=== PATIENT | male | born 1965 | race Caucasian/White ===

== ENCOUNTER 2018-04-18 08:58 | Emergency (ER) | payer SELFPAY ==
--- NOTE | 2018-04-18 09:02 | ER Report ---
History and Physical Time Seen By MD: 09:02 REINA/EUSEBIO CHIEF COMPLAINT: Suicidal ideation HISTORY OF PRESENT ILLNESS: Patient is a 52-year-old male who was traveling from [facility] to [place] for a job apparently he stopped and [place] and during his stay ended up getting a DUI becoming depressed. Patient has prior psychiatric history which includes bipolar disorder but not taking his medications since July. Also has had prior suicidal ideation and attempts. Patient called to the behavioral medicine floor and said that he felt suicidal. Behavioral medicine called the [place] [employer] and he was brought to the emergency department for evaluation. Patient states that his plan was to wait until 9:30 this evening when it was dark and he was going to [place] in front of a moving vehicle. Patient currently states he is voluntary. [place] [employer] state that if the patient changes his mind they would emergency detain him. REVIEW OF SYSTEMS: Constitutional: No fever, no chills. Eyes: No discharge. ENT: No sore throat. Cardiovascular: No chest pain, no palpitations. Respiratory: No cough, no shortness of breath. Gastrointestinal: No abdominal pain, no vomiting. Genitourinary: No hematuria. Musculoskeletal: No back pain. Skin: No rashes. Neurological: no hedache Psych: suicidal Allergies: Coded Allergies: No Known Drug Allergies (Unverified , 04/18/18) Home Meds No Active Prescriptions or Reported Meds Constitutional Vital Sign - Last 24 Hours 04/18/18 04/18/18 04/18/18 04/18/18 09:00 09:03 09:15 09:28 Temp 98.2 Pulse 58 98 Resp 20 B/P (MAP) 138/112 135/116 (122) 146/90 (108) Pulse Ox 95 94 O2 Delivery Room Air 04/18/18 04/18/18 09:30 09:45 B/P (MAP) 128/112 (117) 147/106 (120) Physical Exam General Appearance: The patient is alert, has no immediate need for airway protection and no signs of toxicity. Eyes: Pupils equal and round no pallor or injection. ENT, Mouth: Mucous membranes are moist. Respiratory: There are no retractions, lungs are clear to auscultation. Cardiovascular: Regular rate and rhythm. [ ] Gastrointestinal: Abdomen is soft and non tender, no masses, bowel sounds normal. Neurological: Increased psychomotor agitation, awake and alert GCS is 15 Skin: Warm and dry, no rashes. Musculoskeletal: Neck is supple non tender. Extremities are nontender, nonswollen and have full range of motion. Psychiatric: Suicidal ideation with plan to walk in front of a moving vehicle. Thought process is logical and goal-directed patient does not seem to be responding to any internal stimuli. [DIFFERENTIAL DIAGNOSIS: After history and physical exam differential diagnosis was considered for] [ ] Medical Decision Making Data Points Result Diagram: 04/18/18 1027 04/18/18 1027 Laboratory Hematology Test 04/18/18 09:53 04/18/18 10:27 Urine Color Rhonda Urine Clarity Slightly-cloudy Urine pH 5.0 pH (4.8-9.5) Urine Specific Doss 1.025 Urine Protein 100 mg/dL (NEGATIVE) Urine Glucose (UA) Negative mg/dL (NEGATIVE) Urine Ketones Trace mg/dL (NEGATIVE) Urine Blood Negative (NEGATIVE) Urine Nitrite Negative (NEGATIVE) Urine Bilirubin Negative (NEGATIVE) Urine Urobilinogen 4.0 mg/dL (0.2-1.9) Urine Leukocyte Esterase Negative (NEGATIVE) Urine RBC 2 /HPF (0-2/HPF) Urine WBC 2 /HPF (0-5/HPF) Urine Squamous Epithelial Cells None /LPF (</=FEW) Urine Bacteria Few /HPF (NONE-FEW) Urine Mucus Few /HPF (NONE-FEW) Urine Opiates Screen Negative Urine Barbiturates Screen Negative Ur Tricyclic Antidepressants Screen Negative Urine Phencyclidine Screen Negative Urine Amphetamines Screen Positive Urine Benzodiazepines Screen Negative Urine Cocaine Screen Negative Urine Cannabinoids Screen Positive Red Blood Count 5.05 M/uL (4.00-5.60) Mean Corpuscular Volume 101.6 fL (80.0-96.0) Mean Corpuscular Hemoglobin 34.8 pg (26.0-33.0) Mean Corpuscular Hemoglobin Concent 34.3 g/dL (32.0-36.0) Red Cell Distribution Width 13.2 % (11.5-14.5) Mean Platelet Volume 8.9 fL (7.2-11.1) Neutrophils (%) (Auto) 72.1 % (39.4-72.5) Lymphocytes (%) (Auto) 21.9 % (17.6-49.6) Monocytes (%) (Auto) 4.8 % (4.1-12.4) Eosinophils (%) (Auto) 0.6 % (0.4-6.7) Basophils (%) (Auto) 0.6 % (0.3-1.4) Nucleated RBC Relative Count (auto) 0.1 /100WBC Neutrophils # (Auto) 6.1 K/uL (2.0-7.4) Lymphocytes # (Auto) 1.8 K/uL (1.3-3.6) Monocytes # (Auto) 0.4 K/uL (0.3-1.0) Eosinophils # (Auto) 0.0 K/uL (0.0-0.5) Basophils # (Auto) 0.0 K/uL (0.0-0.1) Nucleated RBC Absolute Count (auto) 0.01 K/uL Sodium Level 141 mmol/L (137-145) Potassium Level 3.5 mmol/L (3.5-5.0) Chloride Level 104 mmol/L (98-107) Carbon Dioxide Level 23 mmol/L (22-30) Blood Urea Nitrogen 9 mg/dl (9-21) Creatinine 0.90 mg/dl (0.66-1.25) Glomerular Filtration Rate Calc > 60.0 Random Glucose 92 mg/dl (75-110) Calcium Level 9.5 mg/dl (8.4-10.2) Magnesium Level 1.6 mg/dl (1.7-2.2) Total Bilirubin 1.1 mg/dl (0.2-1.3) Aspartate Amino Transf (AST/SGOT) 43 U/L (0-35) Alanine Aminotransferase (ALT/SGPT) 31 U/L (0-56) Alkaline Phosphatase 67 U/L (0-126) Total Protein 7.4 g/dl (6.3-8.2) Albumin 4.3 g/dl (3.5-5.0) Salicylates Level < 10 mg/L Salicylate Last Dose Date unk Acetaminophen Level < 10 ug/ml Serum Alcohol 15 mg/dl Chemistry Test 04/18/18 09:53 04/18/18 10:27 Urine Color Rhonda Urine Clarity Slightly-cloudy Urine pH 5.0 pH (4.8-9.5) Urine Specific Doss 1.025 Urine Protein 100 mg/dL (NEGATIVE) Urine Glucose (UA) Negative mg/dL (NEGATIVE) Urine Ketones Trace mg/dL (NEGATIVE) Urine Blood Negative (NEGATIVE) Urine Nitrite Negative (NEGATIVE) Urine Bilirubin Negative (NEGATIVE) Urine Urobilinogen 4.0 mg/dL (0.2-1.9) Urine Leukocyte Esterase Negative (NEGATIVE) Urine RBC 2 /HPF (0-2/HPF) Urine WBC 2 /HPF (0-5/HPF) Urine Squamous Epithelial Cells None /LPF (</=FEW) Urine Bacteria Few /HPF (NONE-FEW) Urine Mucus Few /HPF (NONE-FEW) Urine Opiates Screen Negative Urine Barbiturates Screen Negative Ur Tricyclic Antidepressants Screen Negative Urine Phencyclidine Screen Negative Urine Amphetamines Screen Positive Urine Benzodiazepines Screen Negative Urine Cocaine Screen Negative Urine Cannabinoids Screen Positive White Blood Count 8.4 k/uL (4.5-11.0) Red Blood Count 5.05 M/uL (4.00-5.60) Hemoglobin 17.6 g/dL (14.0-18.0) Hematocrit 51.3 % (42.0-52.0) Mean Corpuscular Volume 101.6 fL (80.0-96.0) Mean Corpuscular Hemoglobin 34.8 pg (26.0-33.0) Mean Corpuscular Hemoglobin Concent 34.3 g/dL (32.0-36.0) Red Cell Distribution Width 13.2 % (11.5-14.5) Platelet Count 154 K/uL (150-450) Mean Platelet Volume 8.9 fL (7.2-11.1) Neutrophils (%) (Auto) 72.1 % (39.4-72.5) Lymphocytes (%) (Auto) 21.9 % (17.6-49.6) Monocytes (%) (Auto) 4.8 % (4.1-12.4) Eosinophils (%) (Auto) 0.6 % (0.4-6.7) Basophils (%) (Auto) 0.6 % (0.3-1.4) Nucleated RBC Relative Count (auto) 0.1 /100WBC Neutrophils # (Auto) 6.1 K/uL (2.0-7.4) Lymphocytes # (Auto) 1.8 K/uL (1.3-3.6) Monocytes # (Auto) 0.4 K/uL (0.3-1.0) Eosinophils # (Auto) 0.0 K/uL (0.0-0.5) Basophils # (Auto) 0.0 K/uL (0.0-0.1) Nucleated RBC Absolute Count (auto) 0.01 K/uL Glomerular Filtration Rate Calc > 60.0 Calcium Level 9.5 mg/dl (8.4-10.2) Magnesium Level 1.6 mg/dl (1.7-2.2) Total Bilirubin 1.1 mg/dl (0.2-1.3) Aspartate Amino Transf (AST/SGOT) 43 U/L (0-35) Alanine Aminotransferase (ALT/SGPT) 31 U/L (0-56) Alkaline Phosphatase 67 U/L (0-126) Total Protein 7.4 g/dl (6.3-8.2) Albumin 4.3 g/dl (3.5-5.0) Salicylates Level < 10 mg/L Salicylate Last Dose Date unk Acetaminophen Level < 10 ug/ml Serum Alcohol 15 mg/dl Toxicology Test 04/18/18 09:53 04/18/18 10:27 Urine Opiates Screen Negative Urine Barbiturates Screen Negative Ur Tricyclic Antidepressants Screen Negative Urine Phencyclidine Screen Negative Urine Amphetamines Screen Positive Urine Benzodiazepines Screen Negative Urine Cocaine Screen Negative Urine Cannabinoids Screen Positive Salicylates Level < 10 mg/L Salicylate Last Dose Date unk Acetaminophen Level < 10 ug/ml Serum Alcohol 15 mg/dl Urinalysis Test 04/18/18 09:53 Urine Color Rhonda Urine Clarity Slightly-cloudy Urine pH 5.0 pH (4.8-9.5) Urine Specific Doss 1.025 Urine Protein 100 mg/dL (NEGATIVE) Urine Glucose (UA) Negative mg/dL (NEGATIVE) Urine Ketones Trace mg/dL (NEGATIVE) Urine Blood Negative (NEGATIVE) Urine Nitrite Negative (NEGATIVE) Urine Bilirubin Negative (NEGATIVE) Urine Urobilinogen 4.0 mg/dL (0.2-1.9) Urine Leukocyte Esterase Negative (NEGATIVE) Urine RBC 2 /HPF (0-2/HPF) Urine WBC 2 /HPF (0-5/HPF) Urine Squamous Epithelial Cells None /LPF (</=FEW) Urine Bacteria Few /HPF (NONE-FEW) Urine Mucus Few /HPF (NONE-FEW) ED Course/Re-evaluation ED Course 04/18/2018 9:17:47 am patient here currently not a police hold. Patient suicidal with plan. We will perform medical screening exam and if cleared we'll discuss the case with behavioral medicine Decision to Disposition Date: Apr 18, 2018 Decision to Disposition Time: 11:08 Depart Departure Latest Vital Signs Vital Signs Date Time Temp Pulse Resp B/P (MAP) Pulse Ox O2 Delivery O2 Flow Rate FiO2 04/18/18 09:45 147/106 (120) 04/18/18 09:28 98 94 04/18/18 09:00 98.2 20 Room Air Impression: Primary Impression: Depression with suicidal ideation Condition: Improved Disposition: XFER TO [facility] UNIT (to Dr Hidalgo) New Scripts No Active Prescriptions or Reported Meds JAVON HASTINGS MD Apr 18, 2018 09:02
[2018-04-18] MEDS ORDERED: LORazepam 1 MG TAB PO ONE (09:15)
[2018-04-18 09:45] VITALS: BP 147/106
[2018-04-18 10:44] LABS: PLATELET COUNT, AUTOMATED 154 K/uL (150-450)
== END 2018-04-18 11:40 ==
LOC: ER 09:05
DX: R45.851 Suicidal ideations (principal); F32.9 Major depressive disorder, single episode, unspecified
CPT/HCPCS: 36415; 80305; 80320; 80329; 81001; 82040; 82247; 82310; 82374; 82435; 82565; 82947; 83735; 84075; 84132; 84155; 84295; 84443; 84450; 84460; 84520; 85025; 99283

== ENCOUNTER 2018-04-18 11:28 | Inpatient (IN) | payer MEDICARE ==
[~2018-04-18] VITALS: Ht 162.6 cm; Wt 54.4 kg
[2018-04-18 11:55] VITALS: BP 128/101
[2018-04-18] MEDS ORDERED: NICOTINE CARTRIDGE 1 EA PO PRN (12:35)
[2018-04-18] MEDS ORDERED: MAG HYD/AL HYD/SIMETH 30ML UDC PO PRN (12:35)
[2018-04-18] MEDS ORDERED: DIAZEPAM 10 MG TAB PO PRN (12:35)
[2018-04-18] MEDS: NICOTINE INH SYSTEM 10 MG/INH INH PRN (12:41)
[2018-04-18] MEDS ORDERED: DIAZEPAM 10 MG TAB PO ONE (12:45)
[2018-04-18 16:32] VITALS: BP 119/79
[2018-04-18 20:15] VITALS: BP 115/70
[2018-04-19 06:36] VITALS: BP 124/70
[2018-04-19] MEDS: MULTIVITAMINS PO SCH (08:10)
[2018-04-19] MEDS: THIAMINE HCL 100 MG TAB PO SCH (08:10)
[2018-04-19] MEDS: FOLIC ACID 1 MG TAB PO SCH (08:10)
[2018-04-19 10:40] VITALS: BP 112/68
[2018-04-19] MEDS: NICOTINE INH SYSTEM 10 MG/INH INH PRN (17:37)
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
[2018-04-20 02:22] VITALS: BP 122/80
[2018-04-20 07:55] VITALS: BP 108/80
[2018-04-20] MEDS: NICOTINE INH SYSTEM 10 MG/INH INH PRN ×2 (08:16→18:04)
[2018-04-20] MEDS: THIAMINE HCL 100 MG TAB PO SCH (08:16)
[2018-04-20] MEDS: MULTIVITAMINS PO SCH (08:16)
[2018-04-20] MEDS: FOLIC ACID 1 MG TAB PO SCH (08:16)
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
[2018-04-20 12:12] VITALS: BP 120/82
[2018-04-20 16:54] VITALS: BP 118/74
[2018-04-20] MEDS ORDERED: MIRTAZAPINE 15 MG TAB PO SCH (21:00)
[2018-04-20] MEDS: NICOTINE POLACRILEX 4 MG LOZG PO PRN (21:03)
[2018-04-20 23:47] VITALS: BP 112/70
[2018-04-21 06:37] VITALS: BP 112/70
[2018-04-21] MEDS: FOLIC ACID 1 MG TAB PO SCH (08:27)
[2018-04-21] MEDS: THIAMINE HCL 100 MG TAB PO SCH (08:27)
[2018-04-21] MEDS: MULTIVITAMINS PO SCH (08:28)
[2018-04-21] MEDS: NICOTINE POLACRILEX 4 MG LOZG PO PRN ×4 (08:31→19:54)
--- NOTE | 2018-04-21 10:03 | BHS Progress Note ---
S - Subjective Progress Notes Subjective "Tired, but okay....yesterday the thoughts hit me pretty hard...no value, no purpose." Reports suicidal thoughts with plan to go out hiking and not take food or halfway and go to sleep when time. Depression rated a 5. Suicidal thoughts rated a 6. He denies thoughts of harming himself on the unit. Suicidal Ideation: Ongoing Homicidal Ideation: None S - Objective Physical Exam Vital Signs Vital Signs 04/20/18 04/21/18 23:47 06:37 Temp 97.3 Pulse 85 Resp 14 B/P (MAP) 112/70 (84) Pulse Ox 95 O2 Delivery Room Air Muscle Strength and Tone: WNL Gait and Station: Steady [facility] Medications Reviewed: Side Effects, Benefits of Medication, Risks Mental Status Exam General Appearance: Casual; No Good Eye Contact (no eye contact); Cooperative, Tearful, Psychomotor Retardation Speech: Clear, Normal Rate, Normal Rhythm; No Normal Volume (low in volume); Normal Tone Mood: Dysthmic/Depressed Affect: Sad Thought Process: Organized, Logical, Goal Directed; No Loose Associations, No Flight of Ideas Thought Content: Suicidal Ideation, Auditory Halllucinations Sensorium: Clear Cognition: Alert & Oriented-Person, Alert & Oriented-Place, Alert & Oriented- Time, [id number]-Auqohdmzk Memory: Immediate, Recent, Remote Intelligence: Average Insight Judgment: Poor [facility] Assessment and Plan [id number] Encounter Date: Apr 21, 2018 [id number] Encounter Time: 10:00 [facility] Plan: Admit to Unit, Necessary Precautions, Individual/Group Therapy, Admin/Titrate Meds, Educate Patient Tobacco Medications: Not Appropriate Condition Multpiple Antipsychotics Used: No Problems: (1) Depression with suicidal ideation Status: Acute NITIN SOUSA NP Apr 21, 2018 10:03
[2018-04-21 14:00] VITALS: BP 118/72
[2018-04-21] MEDS: hydrOXYzine PAMOATE 25 MG CAP PO PRN ×2 (14:13→20:45)
[2018-04-21 20:00] VITALS: BP 132/88
[2018-04-21] MEDS ORDERED: MIRTAZAPINE 15 MG TAB PO SCH (21:00)
[2018-04-22 05:34] VITALS: BP 129/88
[2018-04-22] MEDS: THIAMINE HCL 100 MG TAB PO SCH (08:24)
[2018-04-22] MEDS: NICOTINE POLACRILEX 4 MG LOZG PO PRN ×6 (08:24→21:11)
[2018-04-22] MEDS: FOLIC ACID 1 MG TAB PO SCH (08:24)
[2018-04-22] MEDS: MULTIVITAMINS PO SCH (08:24)
[2018-04-22] MEDS: hydrOXYzine PAMOATE 25 MG CAP PO PRN ×3 (08:25→20:30)
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
[2018-04-22 14:39] VITALS: BP 118/78
[2018-04-22] MEDS ORDERED: MIRTAZAPINE 15 MG TAB PO SCH (21:00)
[2018-04-22 22:33] VITALS: BP 135/92
[2018-04-23 06:12] VITALS: BP 133/88
[2018-04-23] MEDS: MULTIVITAMINS PO SCH (08:09)
[2018-04-23] MEDS: FOLIC ACID 1 MG TAB PO SCH (08:09)
[2018-04-23] MEDS: THIAMINE HCL 100 MG TAB PO SCH (08:09)
[2018-04-23] MEDS: NICOTINE POLACRILEX 4 MG LOZG PO PRN ×5 (08:25→21:31)
[2018-04-23] MEDS: hydrOXYzine PAMOATE 25 MG CAP PO PRN ×2 (08:25→14:27)
--- NOTE | 2018-04-23 11:41 | BHS Progress Note ---
BHS - Subjective Progress Notes Subjective Patient more cooperative today, and indicating a desire to go to [facility] if possible, Will start seroquel tonight to help with ongoing poor sleep and mood instability, Patient is likely polysubstance use disorder to a point, but vague about substance use other than alcohol. Mood improving appetite good, no other concerns. Suicidal Ideation: Resolving Homicidal Ideation: None BHS - Objective Physical Exam Vital Signs Vital Signs Date Time Temp Pulse Resp B/P (MAP) Pulse Ox O2 Delivery O2 Flow Rate FiO2 04/23/18 06:12 98.4 64 133/88 (103) 96 Room Air 04/20/18 23:47 14 Muscle Strength and Tone: WNL Gait and Station: Steady BHS Medications Reviewed: Side Effects, Benefits of Medication, Risks Mental Status Exam General Appearance: Casual, Good Eye Contact (improved), Cooperative, Tearful, Psychomotor Retardation Speech: Clear, Spontaneous, Normal Rate, Normal Rhythm, Normal Volume, Normal Tone Mood: Dysthmic/Depressed Affect: Calm, Neutral Thought Process: Organized, Logical, Goal Directed; No Loose Associations, No Flight of Ideas Thought Content: Suicidal Ideation (resolving), Auditory Halllucinations Sensorium: Clear Cognition: Alert & Oriented-Person, Alert & Oriented-Place, Alert & Oriented- Time, Eilvn-Kcryspnw-Htqcxugge Memory: Immediate, Recent, Remote Intelligence: Average Insight Judgment: Poor BHS Assessment and Plan Kige-kz-Onxr Encounter Date: Apr 23, 2018 Nbqi-ga-Mqpc Encounter Time: 11:00 [facility] Plan: Admit to Unit, Necessary Precautions, Individual/Group Therapy, Admin/Titrate Meds, Educate Patient Tobacco Medications: Not Appropriate Condition Multpiple Antipsychotics Used: No Problems: (1) Alcohol use disorder, moderate, in early remission (2) Personality disorder, unspecified Optional Permanent Comment: likely borderline personality disorder Last Edited By: Vaibhav Baxter on Apr 22, 2018 13:23 Status: Chronic (3) Cannabis use disorder, severe, in controlled environment Optional Permanent Comment: rule out stimulant use disorder as well. Last Edited By: Vaibhav Baxter on Apr 22, 2018 13:23 Status: Chronic VAIBHAV BAXTER MD Apr 23, 2018 11:41
[2018-04-23 13:37] VITALS: BP 133/84
[2018-04-23 13:40] VITALS: BP 134/94
[2018-04-23] MEDS: IBUPROFEN 600 MG TAB PO PRN (18:38)
[2018-04-23] MEDS ORDERED: QUEtiapine FUM 100 MG TAB PO SCH (21:00)
[2018-04-24 05:52] VITALS: BP 105/55
[2018-04-24] MEDS: hydrOXYzine PAMOATE 25 MG CAP PO PRN ×2 (06:12→14:02)
[2018-04-24] MEDS: IBUPROFEN 600 MG TAB PO PRN ×3 (07:28→20:39)
[2018-04-24] MEDS: NICOTINE POLACRILEX 4 MG LOZG PO PRN ×5 (07:28→20:39)
[2018-04-24] MEDS: FOLIC ACID 1 MG TAB PO SCH (08:03)
[2018-04-24] MEDS: MULTIVITAMINS PO SCH (08:03)
[2018-04-24] MEDS: THIAMINE HCL 100 MG TAB PO SCH (08:03)
[2018-04-24 12:16] VITALS: BP 110/74
--- NOTE | 2018-04-24 13:22 | BHS Progress Note ---
S - Subjective Progress Notes Subjective Patient remains cooperative today, and thankful and appreciative with help he is receiving on the unit. Patient stating "I have to admit I was not honest". Patient reporting poor sleep last PM, will increase seroquel tonight. Patient verbalizes intention to abstain from alcohol and illicit substances. Will continue to look for placement. Patient's appetite good, no other concerns today. Suicidal Ideation: None Homicidal Ideation: None S - Objective Physical Exam Vital Signs Vital Signs Date Time Temp Pulse Resp B/P (MAP) Pulse Ox O2 Delivery O2 Flow Rate FiO2 04/24/18 12:16 98.6 85 110/74 (86) 97 Room Air 04/20/18 23:47 14 Muscle Strength and Tone: WNL Gait and Station: Steady BHS Medications Reviewed: Side Effects, Benefits of Medication, Risks Allergies Reviewed: Yes Mental Status Exam General Appearance: Casual, Good Eye Contact (improved), Cooperative, Tearful, Psychomotor Retardation Speech: Clear, Spontaneous, Normal Rate, Normal Rhythm, Normal Volume, Normal Tone Mood: Dysthmic/Depressed Affect: Calm, Neutral Thought Process: Organized, Logical, Goal Directed; No Loose Associations, No Flight of Ideas Thought Content: Suicidal Ideation (resolving), Auditory Halllucinations Sensorium: Clear Cognition: Alert & Oriented-Person, Alert & Oriented-Place, Alert & Oriented- Time, Knizd-Nrveqnsx-Yfzadudqe Memory: Immediate, Recent, Remote Intelligence: Average Insight Judgment: Poor S Assessment and Plan Jfya-vr-Lhiu Encounter Date: Apr 24, 2018 Ggjz-lh-Mbqx Encounter Time: 11:00 S Plan: Admit to Unit, Necessary Precautions, Individual/Group Therapy, Admin/Titrate Meds, Educate Patient Tobacco Medications: Not Appropriate Condition Multpiple Antipsychotics Used: No Problems: (1) Alcohol use disorder, moderate, in early remission Status: Chronic (2) Personality disorder, unspecified Optional Permanent Comment: likely borderline personality disorder Last Edited By: Vaibhav Baxter on Apr 22, 2018 13:23 Status: Chronic (3) Cannabis use disorder, severe, in controlled environment Optional Permanent Comment: rule out stimulant use disorder as well. Last Edited By: Vaibhav Baxter on Apr 22, 2018 13:23 Status: Chronic Condition 1. continue treatment 2. increase seroquel. 3. look for placement. VAIBHAV BAXTER MD Apr 24, 2018 13:22
[2018-04-24] MEDS: QUEtiapine FUM 100 MG TAB PO SCH (20:39)
[2018-04-24 20:50] VITALS: BP 150/95
[2018-04-25 05:55] VITALS: BP 119/90
[2018-04-25] MEDS: hydrOXYzine PAMOATE 25 MG CAP PO PRN ×2 (07:29→14:25)
[2018-04-25] MEDS: IBUPROFEN 600 MG TAB PO PRN (07:29)
[2018-04-25] MEDS: FOLIC ACID 1 MG TAB PO SCH (08:11)
[2018-04-25] MEDS: THIAMINE HCL 100 MG TAB PO SCH (08:11)
[2018-04-25] MEDS: NICOTINE POLACRILEX 4 MG LOZG PO PRN ×3 (08:11→17:54)
[2018-04-25] MEDS: MULTIVITAMINS PO SCH (08:11)
--- NOTE | 2018-04-25 10:45 | BHS Progress Note ---
BHS - Subjective Progress Notes Subjective Patient continues to be very cooperative on the unit, interacting well with potential placement personnel on the phone. Will look into rehab as well. PPD will be placed. Seroquel at 200mg in the evening is effective for sleep and mood stability. Suicidal Ideation: None Homicidal Ideation: None BHS - Objective Physical Exam Vital Signs Vital Signs Date Time Temp Pulse Resp B/P (MAP) Pulse Ox O2 Delivery O2 Flow Rate FiO2 04/25/18 05:55 98.8 76 15 119/90 (100) 97 Room Air Current Medications Medications (Trade) Dose Ordered Sig/Rupa Route PRN Reason Start Time Stop Time Status Last Admin Dose Admin Diazepam (Valium(*) 10 Mg Tab (Or Equiv)) 20 mg TODAY ONCE PO 04/18/18 12:45 04/18/18 12:46 DC 04/18/18 12:41 Al Hydrox/Mg Hydrox/Simethicone (Maalox(*) 30 ml Udcup (Or Equiv)) 30 ml Q4H PRN PO DYSPEPSIA 04/18/18 12:35 05/18/18 12:34 Multivitamins (Thera-M Enhanced Tab (Or Equiv)) 1 each QDAY PO 04/19/18 09:00 05/19/18 08:59 04/25/18 08:11 Thiamine HCl (Vitamin B-1(*) 100 Mg Tab (Or Equiv)) 100 mg QDAY PO 04/19/18 09:00 05/19/18 08:59 04/25/18 08:11 Folic Acid (Folic Acid (*) 1 Mg Tab) 1 mg QDAY PO 04/19/18 09:00 05/19/18 08:59 04/25/18 08:11 Nicotine (Nicotrol Inhaler 10 Mg/Inh (Or Equiv)) 10 mg Q2H PRN INH NICOTINE REPLACEMENT 04/18/18 12:35 04/20/18 20:28 DC 04/20/18 18:04 Miscellaneous Information (Nicotrol Cartridge) 1 each PRN PRN PO NICOTINE REPLACEMENT 04/18/18 12:35 04/20/18 20:28 DC Diazepam (Valium(*) 10 Mg Tab (Or Equiv)) 10-20 MG PRN PRN PO PER CIWA 04/18/18 12:35 04/20/18 12:50 DC Mirtazapine (Remeron 15 Mg Tab (Or Equiv)) 7.5 mg QHS PO 04/20/18 21:00 04/21/18 11:45 DC 04/20/18 20:28 Nicotine Polacrilex (Commit 4 Mg Lozg (Or Equiv)) 4 mg Q1-2H PRN PO Nicotine withdrawal 04/20/18 20:30 05/20/18 20:29 04/25/18 08:11 Mirtazapine (Remeron 15 Mg Tab (Or Equiv)) 15 mg QHS PO 04/21/18 21:00 04/22/18 11:10 DC 04/21/18 20:45 Hydroxyzine Pamoate (Vistaril(*) 25 Mg Cap (Or Equiv)) 25 mg Q6H PRN PO ANXIETY 04/21/18 11:40 05/21/18 11:39 04/25/18 07:29 Mirtazapine (Remeron 15 Mg Tab (Or Equiv)) 7.5 mg QHS PO 04/22/18 21:00 04/23/18 12:26 DC 04/22/18 20:30 Quetiapine Fumarate (SEROquel 100 MG TAB (OR EQUIV)) 100 mg QHS PO 04/23/18 21:00 04/24/18 14:10 DC 04/23/18 21:33 Ibuprofen (Motrin (*) 600 Mg Tab (Or Equiv)) 600 mg Q6H PRN PO PAIN 04/23/18 17:50 05/23/18 17:49 04/25/18 07:29 Quetiapine Fumarate (SEROquel 100 MG TAB (OR EQUIV)) 200 mg QHS PO 04/24/18 21:00 05/24/18 20:59 04/24/18 20:39 Muscle Strength and Tone: WNL Gait and Station: Steady [facility] Medications Reviewed: Side Effects, Benefits of Medication, Risks Allergies Reviewed: Yes Mental Status Exam General Appearance: Casual, Well Groomed, Good Eye Contact (improved), Cooperative, Polite, Good Interaction; No Unkept, No Tearful; Psychomotor Agitation (minimal); No Psychomotor Retardation Speech: Clear, Spontaneous, Normal Rate, Normal Rhythm, Normal Volume, Normal Tone; No Garbled, No Rambling, No Inappropriate Mood: Dysthmic/Depressed (improving) Affect: Calm, Neutral, Anxious (at times) Thought Process: Organized, Logical, Goal Directed; No Loose Associations, No Flight of Ideas Thought Content: No Suicidal Ideation, No Homicidal Ideation; Auditory Halllucinations; No Visual Hallucinations, No Thought Broadcasting, No Ideas of Reference, No Obsessions, No Compulsions Sensorium: Clear Cognition: Alert & Oriented-Person, Alert & Oriented-Place, Alert & Oriented- Time, Rzhxg-Ahjimcib-Rqclimgyi Memory: Immediate, Recent, Remote Intelligence: Average Insight Judgment: Fair (improving in the absence of alcohol and drug use. ) [facility] Assessment and Plan Teez-hw-Oymo Encounter Date: Apr 25, 2018 Bbhh-nd-Ajoy Encounter Time: 10:00 S Plan: Admit to Unit, Necessary Precautions, Individual/Group Therapy, Admin/Titrate Meds, Educate Patient Tobacco Medications: Not Appropriate Condition Multpiple Antipsychotics Used: No Problems: (1) Alcohol use disorder, moderate, in early remission Status: Chronic (2) Personality disorder, unspecified Optional Permanent Comment: likely borderline personality disorder Last Edited By: Vaibhav Baxter on Apr 22, 2018 13:23 Status: Chronic (3) Cannabis use disorder, severe, in controlled environment Optional Permanent Comment: rule out stimulant use disorder as well. Last Edited By: Vaibhav Baxter on Apr 22, 2018 13:23 Status: Chronic VAIBHAV BAXTER MD Apr 25, 2018 10:45
[2018-04-25 13:51] VITALS: BP 142/99
[2018-04-25] MEDS: QUEtiapine FUM 100 MG TAB PO SCH (20:27)
[2018-04-25 22:34] VITALS: BP 144/104
[2018-04-26 06:09] VITALS: BP 121/88
[2018-04-26] MEDS: NICOTINE POLACRILEX 4 MG LOZG PO PRN ×4 (06:30→19:36)
[2018-04-26] MEDS: hydrOXYzine PAMOATE 25 MG CAP PO PRN ×3 (06:30→20:48)
[2018-04-26] MEDS: IBUPROFEN 600 MG TAB PO PRN ×2 (07:46→14:30)
[2018-04-26] MEDS: MULTIVITAMINS PO SCH (08:13)
[2018-04-26] MEDS: FOLIC ACID 1 MG TAB PO SCH (08:13)
[2018-04-26] MEDS: THIAMINE HCL 100 MG TAB PO SCH (08:13)
--- NOTE | 2018-04-26 08:59 | BHS Progress Note ---
[facility] - Subjective Progress Notes Subjective Patient doing well, continues to stabilize, less anxious overall. Will continue on same dose of seroquel, mood improved. Patient exhibiting less maladaptive personality traits in the absence of alcohol and substance use. No other concerns today. Will work at solidifying plans for direct transfer to rehab program early next week. Suicidal Ideation: None Homicidal Ideation: None [facility] - Objective Physical Exam Vital Signs Vital Signs Date Time Temp Pulse Resp B/P (MAP) Pulse Ox O2 Delivery O2 Flow Rate FiO2 04/26/18 06:09 97.1 71 121/88 (99) 95 Room Air 04/25/18 05:55 15 Muscle Strength and Tone: WNL Gait and Station: Steady [facility] Medications Reviewed: Side Effects, Benefits of Medication, Risks Allergies Reviewed: Yes Mental Status Exam General Appearance: Casual, Well Groomed, Good Eye Contact (improved), Cooperative, Polite, Good Interaction; No Unkept, No Tearful; Psychomotor Agitation (minimal); No Psychomotor Retardation Speech: Clear, Spontaneous, Normal Rate, Normal Rhythm, Normal Volume, Normal Tone; No Garbled, No Rambling, No Inappropriate Mood: Dysthmic/Depressed (improving) Affect: Full and Appropriate, Calm, Neutral, Anxious (at times) Thought Process: Organized, Logical, Goal Directed; No Loose Associations, No Flight of Ideas Thought Content: No Suicidal Ideation, No Homicidal Ideation, No Delusions, No Auditory Halllucinations, No Visual Hallucinations, No Thought Broadcasting, No Ideas of Reference, No Obsessions, No Compulsions Sensorium: Clear Cognition: Alert & Oriented-Person, Alert & Oriented-Place, Alert & Oriented- Time, Ouhhn-Mpvuocim-Qmebksyfv Memory: Immediate, Recent, Remote Intelligence: Average Insight Judgment: Fair (improving in the absence of alcohol and drug use. ) [facility] Assessment and Plan Pfwu-sg-Tobg Encounter Date: Apr 26, 2018 Aekr-ev-Syur Encounter Time: 08:15 [facility] Plan: Admit to Unit, Necessary Precautions, Individual/Group Therapy, Admin/Titrate Meds, Educate Patient Tobacco Medications: Not Appropriate Condition Multpiple Antipsychotics Used: No Problems: (1) Alcohol use disorder, moderate, in early remission Status: Chronic (2) Personality disorder, unspecified Optional Permanent Comment: potential borderline personality disorder Last Edited By: Vaibhav Baxter on Apr 26, 2018 08:55 Status: Chronic (3) Cannabis use disorder, severe, in controlled environment Optional Permanent Comment: rule out stimulant use disorder as well. Last Edited By: Vaibhav Baxter on Apr 22, 2018 13:23 Status: Chronic Condition 1. continue treatment. 2. no medication changes today. 3. PPD to be read tomorrow afternoon. 4. plan for transfer to residential treatment program VAIHBAV BAXTER MD Apr 26, 2018 08:59
[2018-04-26 12:20] VITALS: BP 128/74
[2018-04-26 18:25] VITALS: BP 124/74
[2018-04-26] MEDS: QUEtiapine FUM 100 MG TAB PO SCH (20:44)
[2018-04-27] MEDS: hydrOXYzine PAMOATE 25 MG CAP PO PRN ×3 (06:04→17:27)
[2018-04-27] MEDS: IBUPROFEN 600 MG TAB PO PRN (06:05)
[2018-04-27] MEDS: NICOTINE POLACRILEX 4 MG LOZG PO PRN ×7 (06:05→20:36)
[2018-04-27 06:12] VITALS: BP 104/81
[2018-04-27] MEDS: THIAMINE HCL 100 MG TAB PO SCH (08:15)
[2018-04-27] MEDS: MULTIVITAMINS PO SCH (08:15)
[2018-04-27] MEDS: FOLIC ACID 1 MG TAB PO SCH (08:15)
--- NOTE | 2018-04-27 09:16 | BHS Progress Note ---
S - Subjective Progress Notes Subjective "I'm going to be real honest. I'm not ready to stop smoking and the facility in [place] doesn't allow smoking. I know if I don't go for rehab I'm done." 37 year history of smoking 1 1/2 ppd Rates depression 10/13, anxiety 12/13, triggers "the unknown" Denies suicidal or homicidal ideation Suicidal Ideation: None Homicidal Ideation: None S - Objective Physical Exam Vital Signs Vital Signs Date Time Temp Pulse Resp B/P (MAP) Pulse Ox O2 Delivery O2 Flow Rate FiO2 04/27/18 06:12 96.9 109 104/81 (89) 97 Room Air 04/26/18 18:25 16 Allergies Coded Allergies No Known Drug Allergies (Unverified04/18/18) Muscle Strength and Tone: WNL Gait and Station: Steady B[facility] Medications Reviewed: Side Effects, Benefits of Medication, Risks Allergies Reviewed: Yes Mental Status Exam General Appearance: Casual, Well Groomed, Good Eye Contact (improved), Cooperative, Polite, Good Interaction; No Unkept, No Tearful; Psychomotor Agitation (minimal); No Psychomotor Retardation Speech: Clear, Spontaneous, Normal Rate, Normal Rhythm, Normal Volume, Normal Tone; No Garbled, No Rambling, No Inappropriate Mood: Dysthmic/Depressed (improving) Affect: Full and Appropriate, Calm, Neutral, Anxious (at times) Thought Process: Organized, Logical, Goal Directed; No Loose Associations, No Flight of Ideas Thought Content: No Suicidal Ideation, No Homicidal Ideation, No Delusions, No Auditory Halllucinations, No Visual Hallucinations, No Thought Broadcasting, No Ideas of Reference, No Obsessions, No Compulsions Sensorium: Clear Cognition: Alert & Oriented-Person, Alert & Oriented-Place, Alert & Oriented- Time, Zjmnx-Mcizlhkc-Mqrwzspsc Memory: Immediate, Recent, Remote Intelligence: Average Insight Judgment: Fair (improving in the absence of alcohol and drug use. ) Lab Vital Signs Date Time Temp Pulse Resp B/P (MAP) Pulse Ox O2 Delivery O2 Flow Rate FiO2 04/27/18 06:12 96.9 109 104/81 (89) 97 Room Air 04/26/18 18:25 16 S Assessment and Plan Hasq-yu-Noog Encounter Date: Apr 27, 2018 Wdll-hb-Fnwh Encounter Time: 09:12 [facility] Plan: Admit to Unit, Necessary Precautions, Individual/Group Therapy, Admin /Titrate Meds, Educate Patient Tobacco Medications: Not Appropriate Condition Multpiple Antipsychotics Used: No Problems: (1) Alcohol use disorder, moderate, in early remission Status: Chronic (2) Cannabis use disorder, severe, in controlled environment Optional Permanent Comment: rule out stimulant use disorder as well. Last Edited By: Mir Leiva on Apr 22, 2018 13:23 Status: Chronic Condition Continue work towards residential treatment program Continue medications PPD to be read today YFN SHEPARD NP Apr 27, 2018 09:16
[2018-04-27] MEDS: NICOTINE 21 MG/24 HR PATCH TD SCH (09:43)
[2018-04-27 13:30] VITALS: BP 114/82
[2018-04-27 17:30] VITALS: BP 108/68
[2018-04-27] MEDS: QUEtiapine FUM 100 MG TAB PO SCH (20:36)
[2018-04-28 05:55] VITALS: BP 123/86
[2018-04-28] MEDS: THIAMINE HCL 100 MG TAB PO SCH (07:46)
[2018-04-28] MEDS: IBUPROFEN 600 MG TAB PO PRN (07:46)
[2018-04-28] MEDS: FOLIC ACID 1 MG TAB PO SCH (07:46)
[2018-04-28] MEDS: NICOTINE POLACRILEX 4 MG LOZG PO PRN ×6 (07:46→19:10)
[2018-04-28] MEDS: MULTIVITAMINS PO SCH (07:46)
[2018-04-28] MEDS: hydrOXYzine PAMOATE 25 MG CAP PO PRN ×3 (07:46→16:04)
--- NOTE | 2018-04-28 09:49 | BHS Progress Note ---
[facility] - Subjective Progress Notes Subjective "The Hydroxyzine helped a lot but today my anxiety is up a lot." AH "Without the alcohol the auditory noise started getting worse. I've had that since my first diagnosis five years ago. It's like background muffled." Denies visual hallucinations, denies command auditory hallucinations Anxiety increased, depression minimal, some irritability Discuss in length residential treatment program Suicidal Ideation: None Homicidal Ideation: None [facility] - Objective Physical Exam Vital Signs Vital Signs Date Time Temp Pulse Resp B/P (MAP) Pulse Ox O2 Delivery O2 Flow Rate FiO2 04/28/18 05:55 97.1 80 123/86 (98) 94 Room Air 04/27/18 17:30 16 Muscle Strength and Tone: WNL Gait and Station: Steady [facility] Medications Reviewed: Side Effects, Benefits of Medication, Risks Allergies Reviewed: Yes Mental Status Exam General Appearance: Casual, Well Groomed, Good Eye Contact (improved), Cooperative, Polite, Good Interaction; No Unkept, No Tearful; Psychomotor Agitation (minimal); No Psychomotor Retardation Speech: Clear, Spontaneous, Normal Rate, Normal Rhythm, Normal Volume, Normal Tone; No Garbled, No Rambling, No Inappropriate Mood: Dysthmic/Depressed (improving) Affect: Full and Appropriate, Calm, Neutral, Anxious (ongoing) Thought Process: Organized, Logical, Goal Directed; No Loose Associations, No Flight of Ideas Thought Content: No Suicidal Ideation, No Homicidal Ideation, No Delusions, No Auditory Halllucinations, No Visual Hallucinations, No Thought Broadcasting, No Ideas of Reference, No Obsessions, No Compulsions Sensorium: Clear Cognition: Alert & Oriented-Person, Alert & Oriented-Place, Alert & Oriented- Time, Nqxob-Xopkzlcn-Nxeiahamx Memory: Immediate, Recent, Remote Intelligence: Average Insight Judgment: Fair (improving in the absence of alcohol and drug use. ) Microbiology Laboratory Tests 04/25/18 11:35: Tuberculin Skin Test 0 [facility] Assessment and Plan Pajh-fu-Lbfj Encounter Date: Apr 28, 2018 Mrkq-mv-Hftr Encounter Time: 09:46 [facility] Plan: Admit to Unit, Necessary Precautions, Individual/Group Therapy, Admin /Titrate Meds, Educate Patient Tobacco Medications: Not Appropriate Condition Multpiple Antipsychotics Used: No Problems: (1) Alcohol use disorder, moderate, in early remission Status: Chronic (2) Cannabis use disorder, severe, in controlled environment Optional Permanent Comment: rule out stimulant use disorder as well. Last Edited By: Mir Leiva on Apr 22, 2018 13:23 Status: Chronic Condition Current Medications Medications (Trade) Dose Ordered Sig/Rupa Route PRN Reason Start Time Stop Time Status Last Admin Dose Admin Diazepam (Valium(*) 10 Mg Tab (Or Equiv)) 20 mg TODAY ONCE PO 04/18/18 12:45 04/18/18 12:46 DC 04/18/18 12:41 Al Hydrox/Mg Hydrox/Simethicone (Maalox(*) 30 ml Udcup (Or Equiv)) 30 ml Q4H PRN PO DYSPEPSIA 04/18/18 12:35 05/18/18 12:34 Multivitamins (Thera-M Enhanced Tab (Or Equiv)) 1 each QDAY PO 04/19/18 09:00 05/19/18 08:59 04/28/18 07:46 Thiamine HCl (Vitamin B-1(*) 100 Mg Tab (Or Equiv)) 100 mg QDAY PO 04/19/18 09:00 05/19/18 08:59 04/28/18 07:46 Folic Acid (Folic Acid (*) 1 Mg Tab) 1 mg QDAY PO 04/19/18 09:00 05/19/18 08:59 04/28/18 07:46 Nicotine (Nicotrol Inhaler 10 Mg/Inh (Or Equiv)) 10 mg Q2H PRN INH NICOTINE REPLACEMENT 04/18/18 12:35 04/20/18 20:28 DC 04/20/18 18:04 Miscellaneous Information (Nicotrol Cartridge) 1 each PRN PRN PO NICOTINE REPLACEMENT 04/18/18 12:35 04/20/18 20:28 DC Diazepam (Valium(*) 10 Mg Tab (Or Equiv)) 10-20 MG PRN PRN PO PER CIWA 04/18/18 12:35 04/20/18 12:50 DC Mirtazapine (Remeron 15 Mg Tab (Or Equiv)) 7.5 mg QHS PO 04/20/18 21:00 04/21/18 11:45 DC 04/20/18 20:28 Nicotine Polacrilex (Commit 4 Mg Lozg (Or Equiv)) 4 mg Q1-2H PRN PO Nicotine withdrawal 04/20/18 20:30 05/20/18 20:29 04/28/18 07:46 Mirtazapine (Remeron 15 Mg Tab (Or Equiv)) 15 mg QHS PO 04/21/18 21:00 04/22/18 11:10 DC 04/21/18 20:45 Hydroxyzine Pamoate (Vistaril(*) 25 Mg Cap (Or Equiv)) 25 mg Q6H PRN PO ANXIETY 04/21/18 11:40 04/27/18 09:30 DC 04/27/18 06:04 Mirtazapine (Remeron 15 Mg Tab (Or Equiv)) 7.5 mg QHS PO 04/22/18 21:00 04/23/18 12:26 DC 04/22/18 20:30 Quetiapine Fumarate (SEROquel 100 MG TAB (OR EQUIV)) 100 mg QHS PO 04/23/18 21:00 04/24/18 14:10 DC 04/23/18 21:33 Ibuprofen (Motrin (*) 600 Mg Tab (Or Equiv)) 600 mg Q6H PRN PO PAIN 04/23/18 17:50 05/23/18 17:49 04/28/18 07:46 Quetiapine Fumarate (SEROquel 100 MG TAB (OR EQUIV)) 200 mg QHS PO 04/24/18 21:00 05/24/18 20:59 04/27/18 20:36 Nicotine (Nicoderm Cq(*) 21 Mg/24 Hr (Or Equiv)) 21 mg QDAY TD 04/27/18 09:10 05/27/18 09:09 04/27/18 09:43 Hydroxyzine Pamoate (Vistaril(*) 25 Mg Cap (Or Equiv)) 50 mg Q6H PRN PO ANXIETY 04/27/18 09:30 05/27/18 09:29 04/28/18 07:46 Treatment team Sunday04/29/18 Ongoing discharge planning regarding residential tx programs Continue current medications and treatment YFN SHEPARD NP Apr 28, 2018 09:49
[2018-04-28] MEDS: NICOTINE 21 MG/24 HR PATCH TD SCH (10:04)
[2018-04-28 13:30] VITALS: BP 112/74
[2018-04-28] MEDS: QUEtiapine FUM 100 MG TAB PO SCH (20:33)
[2018-04-28 20:41] VITALS: BP 141/96
[2018-04-29] MEDS: hydrOXYzine PAMOATE 25 MG CAP PO PRN ×3 (05:39→19:46)
[2018-04-29 05:45] VITALS: BP 118/84
[2018-04-29] MEDS: NICOTINE POLACRILEX 4 MG LOZG PO PRN ×9 (08:17→21:35)
[2018-04-29] MEDS: THIAMINE HCL 100 MG TAB PO SCH (08:17)
[2018-04-29] MEDS: FOLIC ACID 1 MG TAB PO SCH (08:17)
[2018-04-29] MEDS: MULTIVITAMINS PO SCH (08:17)
[2018-04-29] MEDS: NICOTINE 21 MG/24 HR PATCH TD SCH (08:43)
--- NOTE | 2018-04-29 09:52 | BHS Progress Note ---
[facility] - Subjective Progress Notes Subjective Patient remains cooperative and expressing interest in entering rehab. Will finalize plans today. Patient denies any other concerns. Appetite and sleep intact. No other concerns. Suicidal Ideation: None Homicidal Ideation: None [facility] - Objective Physical Exam Vital Signs Hematology Test 04/25/18 11:35 04/28/18 11:03 Tuberculin Skin Test 0 mm Vitamin D 25-Hydroxy 30 ng/ml (30-100) Chemistry Test 04/25/18 11:35 04/28/18 11:03 Tuberculin Skin Test 0 mm Vitamin D 25-Hydroxy 30 ng/ml (30-100) Vital Signs Date Time Temp Pulse Resp B/P (MAP) Pulse Ox O2 Delivery O2 Flow Rate FiO2 04/29/18 05:45 98.3 112 15 118/84 (95) 96 Room Air Muscle Strength and Tone: WNL Gait and Station: Steady [facility] Medications Reviewed: Side Effects, Benefits of Medication, Risks Allergies Reviewed: Yes Mental Status Exam General Appearance: Casual, Well Groomed, Good Eye Contact (improved), Cooperative, Polite, Good Interaction; No Unkept, No Tearful; Psychomotor Agitation (minimal); No Psychomotor Retardation Speech: Clear, Spontaneous, Normal Rate, Normal Rhythm, Normal Volume, Normal Tone; No Garbled, No Rambling, No Inappropriate Mood: Euthymic (good) Affect: Full and Appropriate, Calm; No Sad; Neutral; No Flat, No Withdrawn, No Tearful, No Anxious, No Agitated Thought Process: Organized, Logical, Goal Directed; No Loose Associations, No Flight of Ideas Thought Content: No Suicidal Ideation, No Homicidal Ideation, No Delusions, No Auditory Halllucinations, No Visual Hallucinations, No Thought Broadcasting, No Ideas of Reference, No Obsessions, No Compulsions Sensorium: Clear Cognition: Alert & Oriented-Person, Alert & Oriented-Place, Alert & Oriented- Time, Vhcsz-Ttyhxpre-Ikcthvzfu Memory: Immediate, Recent, Remote Intelligence: Average Insight Judgment: Fair (improving in the absence of alcohol and drug use. some ongoing borderline personality traits likely) [facility] Assessment and Plan Jcyp-sp-Dkaw Encounter Date: Apr 29, 2018 Ygnh-ax-Cvxh Encounter Time: 08:30 [facility] Plan: Admit to Unit, Necessary Precautions, Individual/Group Therapy, Admin/Titrate Meds, Educate Patient Tobacco Medications: Not Appropriate Condition Multpiple Antipsychotics Used: No Problems: (1) Alcohol use disorder, moderate, in early remission Status: Chronic (2) Personality disorder, unspecified Optional Permanent Comment: potential borderline personality disorder Last Edited By: Vaibhav Baxter on Apr 26, 2018 08:55 Status: Chronic (3) Cannabis use disorder, severe, in controlled environment Optional Permanent Comment: rule out stimulant use disorder as well. Last Edited By: Vaibhav Baxter on Apr 22, 2018 13:23 Status: Chronic VAIBHAV BAXTER MD Apr 29, 2018 09:52
[2018-04-29 13:31] VITALS: BP 125/88
[2018-04-29] MEDS: IBUPROFEN 600 MG TAB PO PRN (17:21)
[2018-04-29] MEDS: QUEtiapine FUM 100 MG TAB PO SCH (20:23)
[2018-04-29 22:12] VITALS: BP 139/91
[2018-04-30] MEDS: NICOTINE POLACRILEX 4 MG LOZG PO PRN ×5 (06:00→12:32)
[2018-04-30] MEDS: hydrOXYzine PAMOATE 25 MG CAP PO PRN ×2 (06:00→12:03)
[2018-04-30] MEDS: IBUPROFEN 600 MG TAB PO PRN (06:00)
[2018-04-30 06:07] VITALS: BP 120/87
[2018-04-30] MEDS: THIAMINE HCL 100 MG TAB PO SCH (08:06)
[2018-04-30] MEDS: FOLIC ACID 1 MG TAB PO SCH (08:06)
[2018-04-30] MEDS: MULTIVITAMINS PO SCH (08:06)
[2018-04-30] MEDS: NICOTINE 21 MG/24 HR PATCH TD SCH (08:08)
[2018-04-30] MEDS ORDERED: NICO-218 TD (10:56)
[2018-04-30] MEDS ORDERED: QUET200T29 PO (10:57)
[2018-04-30] MEDS ORDERED: NICO4LOZ35 BC (10:57)
[2018-04-30] MEDS ORDERED: MULT-1379 PO (10:57)
[2018-04-30] MEDS ORDERED: IBUP600T22 PO (10:58)
[2018-04-30] MEDS ORDERED: HYDR25CA83 PO (10:59)
[2018-04-30 13:11] VITALS: BP 135/99
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
== END 2018-04-30 13:59 | DRG 885 ==
LOC: UNDOADMIN 11:28 → BHS 11:28
PROVIDERS: ADMIT Psychiatry & Neurology Psychiatry; ATTEND Psychiatry & Neurology Psychiatry
DX: F31.9 Bipolar disorder, unspecified (principal); R45.851 Suicidal ideations; F10.220 Alcohol dependence with intoxication, uncomplicated; F17.210 Nicotine dependence, cigarettes, uncomplicated; F12.20 Cannabis dependence, uncomplicated; F43.12 Post-traumatic stress disorder, chronic; F15.90 Other stimulant use, unspecified, uncomplicated; F60.2 Antisocial personality disorder; Y90.0 Blood alcohol level of less than 20 mg/100 ml; Z62.819 Personal history of unspecified abuse in childhood; Z59.0 Homelessness; Z76.5 Malingerer [conscious simulation]
CPT/HCPCS: 36415; 80305; 80320; 80329; 81001; 82040; 82247; 82306; 82310; 82374; 82435; 82565; 82947; 83735; 84075; 84132; 84155; 84295; 84443; 84450; 84460; 84520; 85025; 86580; 99283; G0378; Q0177